=== PATIENT | male | born 1995 | race Caucasian/White ===

== ENCOUNTER 2020-06-15 17:57 | Emergency (ER) | payer BC ==
[2020-06-15] MEDS ORDERED: DIPHTH,PERTUSS(ACELL),TET 0.5 ML DISP.SYRIN IM ONE (18:01)
[2020-06-15] MEDS ORDERED: BACITRACIN 0.9 GM PACKET TP ONE (18:01)
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
[2020-06-15 18:03] VITALS: BP 129/55; PULSE 51; TEMP 99; BMI 24.2
[2020-06-15] MEDS ORDERED: BACITRACIN 15 GM TUBE TOPICAL OINTMENT ONE (18:23)
[2020-06-15] MEDS ORDERED: AMOX TR/POT CLAV 875MG/125MG TABLETS (FP) PO ONE (18:30)
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
[2020-06-15] MEDS ORDERED: AMOX TR/POT CLAV 875MG/125MG TABLETS (FP) ONE (18:43)
== END 2020-06-15 18:48 | disposition home or self-care (01) ==
LOC: JERFT 17:57
PROC: 3E0234Z Introduction of Serum, Toxoid and Vaccine into Muscle, Percutaneous Approach (ICD-10-PCS; principal; 2020-06-15)
DX: S60.511A Abrasion of right hand, initial encounter (principal)
CPT/HCPCS: 73130-TC-RT-FY; 90715; 99284-25

== ENCOUNTER 2023-01-08 12:45 | Emergency (ER) | payer BC, OTHER ==
[2023-01-08 13:16] VITALS: BMI 23.6
[2023-01-08] MEDS ORDERED: ACETAMINOPHEN 325 MG TABLET (FP) PO ONE (13:33)
[2023-01-08] MEDS ORDERED: ACETAMINOPHEN 325 MG TABLET (FP) ONE (13:44)
[2023-01-08 14:25] LABS: PH,URINE 6.5 (5.0-8.0); URINE APPEARANCE HAZY; URINE BILIRUBIN NEGATIVE (NEGATIVE); URINE COLOR YELLOW; URINE GLUCOSE (UA) NEGATIVE (NEGATIVE); URINE KETONE NEGATIVE (NEGATIVE); URINE LEUK ESTERASE NEGATIVE (NEGATIVE); URINE NITRITE NEGATIVE (NEGATIVE); URINE PROTEIN NEGATIVE (NEGATIVE); URINE UROBILINOGEN 0.2 mg/dL (0.2-1.0)
[2023-01-08 16:00] VITALS: BP 115/65; PULSE 50; RESP 16; TEMP 98
== END 2023-01-08 16:02 | disposition home or self-care (01) ==
LOC: JER 12:45
DX: N50.811 Right testicular pain (principal)
CPT/HCPCS: 76870-TC; 81003; 87086; 99284-25